=== PATIENT | female | born 1980 | race Caucasian/White ===

== ENCOUNTER → 2016-07-26 | Day surgery (SDC) | payer BC ==
[2016-07-25 12:37] VITALS: BMI 31.0
--- NOTE | 2016-07-25 13:02 | PAT Medication Instructions ---
Service Date Jul 25, 2016. Current Home Medication List Chlorhexidine Gluconate (Antiseptic Skin Cleanser), 1 DOSE TOP PRN PRN for BOILS Multivit/Min/Iron/Fol Ac/Pren ( Vitamin), 1 TAB PO DAILY [topical antibiotic], 1 DOSE TOP prn PRN for BOILS Medication Instructions For Your Scheduled Surgery - Hold the following medications the morning of surgery: Multivit/Min/Iron/Fol Ac/Pren ( Vitamin), 1 TAB PO DAILY Chlorhexidine Gluconate (Antiseptic Skin Cleanser), 1 DOSE TOP PRN PRN for BOILS [topical antibiotic], 1 DOSE TOP prn PRN for BOILS Nothing to eat or drink after midnight If you have any questions please call us at [phone] (Briana Zuluaga PA-C ) or [phone] or [phone]
[2016-07-25 13:15] LABS: BASO % 0.2 %; BASO ABS # 0.02 K/uL (0-0.2); COMPLETE YES; EOS % 1.5 %; HEMATOCRIT 39.3 % (37-47); IG% 0.2 %; LYMPH % 30.3 %; LYMPH ABS # 2.64 K/uL (1.2-3.4); MEAN CORPUSCULAR HEMOGLOBIN 33.5 pg (25-34); MEAN CORPUSCULAR HGB CONC 35.6 g/dl (32-36); MEAN PLATELET VOLUME 8.8 fL (7.4-10.4); MONO % 7.8 %; PLATELET COUNT 280 K/uL (130-400); RED BLOOD COUNT 4.18 M/uL (4.2-5.4); WHITE BLOOD COUNT 8.71 K/uL (4.8-10.8)
[~2016-07-26] VITALS: Ht 167.6 cm; Wt 86.9 kg
[~2016-07-26] MED LIST: ANTIBIOTIC TOP; ATROPINE SULFATE 0.1 MG/ML 5ML SYR IV PRN; CHLO4SOL TOP; CLINDAMYCIN 600 MG/54 ML D5W IV SCH; DEXAMETHASONE SOD INJ 4 MG/ML VIAL ONE; EpHEDrine SULFATE INJ 50 MG/ML AMP IV PRN; FENTANYL CITRATE INJ 50 MCG/1 ML 2 ML VIAL ONE; FLUMAZENIL 0.1 MG/1 ML 10 ML VIAL IV PRN; GENTAMICIN INJ 130 MG in DEXTROSE 5% 100ML 100 ML IV SCH; IBUP-1450 PO; IBUPROFEN 600 MG TAB PO PRN; KETOROLAC TROMETHAMINE 30 MG/ML VIAL IV. PRN; KETOROLAC TROMETHAMINE 30 MG/ML VIAL ONE; LACTATED RINGER'S 1000ML 1,000 ML IV SCH; LIDOCAINE HCL 2% 2 ML VIAL (20MG/ML) ONE; METHYLERGONOVINE MALEATE 0.2 MG/ML AMP ONE; METOCLOPRAMIDE HCL INJ 5 MG/ML 2 ML VIAL IV PRN; MIDAZOLAM HCL 1 MG/ML 2ML VIAL ONE; MTR600X PO; MoRPHine SULFATE 2 MG/ML CARP IV PRN; MoRPHine SULFATE 4 MG/ML 1 ML CARP\\VIAL IV PRN; NALOXONE HCL 0.4 MG/1 ML VIAL/CARP IV PRN; ONDANSETRON INJ 2 MG/ML 2 ML VIAL IV PRN; ONDANSETRON INJ 2 MG/ML 2 ML VIAL ONE; OXYC-57 PO; OXYCODONE/ACETAMINOPHEN 5-325 TAB PO PRN; PRENTAB26 PO; PROMETHAZINE HCL INJ 12.5 MG in SODIUM CHLORIDE 0.9% 50ML 50 ML IV PRN; PROPOFOL IV EMULSION 10 MG/ML 20 ML VIAL IV ONE; ROCURONIUM BROMIDE 10 MG/ML 5 ML VIAL ONE; SODIUM CHLORIDE 0.9% 1000ML 1,000 ML IV SCH; SUCCINYLCHOLINE CHLORIDE 20 MG/ML 10 ML VIAL IV ONE
[2016-07-26 06:55] VITALS: BP 106/61; PULSE 94; TEMP 37.3; O2SAT 96; Ht 167.6 cm; Wt 86.9 kg
[2016-07-26 06:59] LABS: BASO % 0.2 %; BASO ABS # 0.02 K/uL (0-0.2); COMPLETE YES; EOS % 1.9 %; HEMATOCRIT 38.8 % (37-47); IG% 0.1 %; LYMPH % 35.4 %; LYMPH ABS # 3.22 K/uL (1.2-3.4); MEAN CELL VOLUME 94.9 fL (80-100); MEAN CORPUSCULAR HEMOGLOBIN 33.5 pg (25-34); MEAN CORPUSCULAR HGB CONC 35.3 g/dl (32-36); MEAN PLATELET VOLUME 9.2 fL (7.4-10.4); MONO % 7.5 %; NEUT % 54.9 %; PLATELET COUNT 277 K/uL (130-400); RED BLOOD COUNT 4.09 M/uL (4.2-5.4); WHITE BLOOD COUNT 9.09 K/uL (4.8-10.8)
--- NOTE | 2016-07-26 07:41 | History & Physical Bridge Note ---
H&P Re-Evaluation Bridge Note: I have examined the patient, reviewed the History & Physical and in the interval since the performance of the History & Physical I have noted the following changes of clinical significance: No changes noted ECG: normal on 07/25/16
--- NOTE | 2016-07-26 09:14 | [facility] Post Operative Brief Note ---
Immediate Operative Summary Operative Date Jul 26, 2016. Pre-Operative Diagnosis Missed Post-Operative Diagnosis Same as preoperative Procedure(s) Performed Exam Under Anesthesia, Suction, Dilation and Currettage Surgeon Dr. Stubbs Anode Worker Surgeon(s) None per surgeon Estimated Blood Loss 50ml Findings RV 8 week size uterus, [employer] adnexa Specimens A.) Products of conception and endometrial currettings Anesthesia LMA Complication(s) None Disposition Recovery Room / PACU
[2016-07-26] MEDS: FENTANYL CITRATE INJ 50 MCG/1 ML 2 ML VIAL IV PRN ×4 (09:18→09:35)
--- NOTE | 2016-07-26 09:22 | Discharge Instructions-SurgCtr ---
Discharge Instructions Visit Reason for Visit: Missed Discharge Discharge Diagnosis / Problem: Suction, D&C Discharge Goals Goal(s): Decrease discomfort, Improve function Activity Recommendations Activity Limitations: as noted below Lifting Limitations: gradually increase as tolerated Exercise/Sports Limitations: until after follow-up appointment May Resume Sexual Activity: after follow-up appointment Shower/Bathe: no limitations Driving or Machine Use: resume 3 days after discharge ACTIVITY RECOMMENDATIONS: * Avoid tampons, douching, hot tubs, pools, and intercourse until bleeding has stopped. * May shower as usual. * No strenuous activity for 24-48 hours. After 24-48 hours, you may do anything you feel like doing (driving and sports are okay). SPECIAL CARE INSTRUCTIONS: Special Diet: * Mild nausea may occur in the immediate post-operative period. * Take clear liquids such as tea, cola or bouillon until all nausea has subsided; you may then resume your normal diet. Special Care: * Light bleeding and vaginal spotting can last from a few days to 3-4 weeks. Call your doctor if bleeding becomes heavier than the heaviest part of your period. * Check your temperature twice a day for one week. If it goes above 100.4 degrees Fahrenheit (38.0 Celsius), notify your doctor. * Call your doctor's office for an appointment for 4-6 weeks after your surgery. FOLLOW-UP VISIT: Call your doctor's office for an appointment for 4-6 weeks after your surgery. Anesthesia . Post Anesthesia Instructions: If you have had General Anesthesia or IV Sedation: * Do not drive today. * Resume driving when surgeon permits. * Do not make important decisions or sign legal documents today. * Call surgeon for: 1. Temperature elevations greater than 101 degrees F. 2. Uncontrollable pain. 3. Excessive bleeding. 4. Persistent nausea and vomiting. 5. Medication intolerance (nausea, vomiting or rash). * For nausea and vomiting use only clear liquids such as: tea, soda, bouillon until nausea subsides, then gradually increase diet as tolerated. * If you have any concerns or questions, call your surgeon's office. If physician is unavailable and it is an emergency, call 911 or go to the nearest emergency room. . Procedures Procedures Performed: Exam Under Anesthesia, Suction, Dilation and Currettage Pending Studies Studies pending at discharge: no Medical Emergencies . Who to Call and When: Medical Emergencies: If at any time you feel your situation is an emergency, please call 911 immediately. . Non-Emergent Contact Non-Emergency issues call your: Surgeon Call Non-Emergent contact if: temperature is above 100.5, your pain is not controlled, your pain is worsening . . "Provider Documentation" section prepared by Breanne Stubbs.
[2016-07-26 09:55] VITALS: BP 111/63; PULSE 88; TEMP 36.9; O2SAT 95
--- NOTE | 2016-07-26 10:06 | Anesthesiology Progress Note ---
Anesthesia Post Op Note Date & Time Jul 26, 2016 at 10:05 Vital Signs Pain Intensity: 2 Vital Signs Past 12 Hours Date Time Temp Pulse Resp B/P Pulse Ox O2 Delivery O2 Flow Rate FiO2 07/26/16 09:50 36.5 88 15 115/74 95 Room Air 07/26/16 09:40 86 18 116/69 96 Room Air 07/26/16 09:30 80 20 126/72 98 Mask 10 07/26/16 09:20 94 12 118/81 99 Mask 10 07/26/16 09:14 36.6 101 17 124/84 99 Mask 10 07/26/16 06:55 37.3 94 18 106/61 96 Room Air Notes Mental Status: alert / awake / arousable, participated in evaluation Pt Amnestic to Procedure: Yes Nausea / Vomiting: adequately controlled Pain: adequately controlled Airway Patency, RR, SpO2: stable & adequate BP & HR: stable & adequate Hydration State: stable & adequate Anesthetic Complications: no major complications apparent
--- NOTE | 2016-07-26 10:09 | OPERATIVE REPORT ---
DATE OF OPERATION: 07/26/2016 PREOPERATIVE DIAGNOSIS: The patient is a 36-year-old G1, P0 at 9 weeks of gestation by her last period and missed with 6 weeks size gestational sac, no embryo for over 3 weeks per repeat pelvic ultrasounds. Desires surgical termination of . POSTOPERATIVE DIAGNOSIS: Same. PROCEDURE: Examination under anesthesia, suction dilatation and curettage. SURGEON: Dr. Guerin. CLAY THROWER: OR nurse. ESTIMATED BLOOD LOSS: 50ml. SPECIMENS: Products of conception and endometrial curettings. ANESTHESIA: LMA Dr. Espino. COMPLICATIONS: None. FINDINGS: Examination under anesthesia revealed retroverted 8 weeks' size uterus and nonpalpable adnexa. Closed cervix with no signs of bleeding. OPERATION AND FINDINGS: PROCEDURE: The patient was taken to the operating room where anesthesia was given without difficulty. She was placed in dorsal lithotomy position and prepared and draped in usual sterile fashion. The bladder was drained with straight catheter, 150 mL of clear urine was obtained. Examination under anesthesia revealed retroverted 8 weeks' size uterus, nonpalpable adnexa and closed cervix. Gloves were changed. A weighted speculum was placed in the patient's vagina and anterior vaginal wall was retracted with Coburn valve and then cervix was visualized, grasped with single tooth tenaculum. The uterus was sounded to be 10 cm Cervical os was dilated with Gilbert dilators until #27. Then 8 mm curved flexible plastic suction tip was used. It was introduced from cervix and suction device was activated. With suction tip twisting in a clockwise direction moderate amount of products of conceptions were obtained.. Suction was repeated x3 and at the end only minimal amount of blood was coming from the suction tip Then the suction was ended. With a small sharp curette uterine cavity was curetted until uterine cry sound was felt in its entirety and those tissues were sent to pathology. Then suction tip was introduced again and suctioned small amount of blood. At the end of the procedure cervix was closed and no bleeding. Single tooth tenaculum was removed from the patient's cervix and it was hemostatic. Examination under anesthesia was repeated and found that smaller size firm uterus. The patient was given terbutaline 0.2 mg for prophylaxis of bleeding. The patient tolerated the procedure well. Sponge, lap, needle and instrument count was correct x3. She was given 130 mg of gentamicin and 600 mg of clindamycin before surgery. She was cleaned, dried and taken out from lithotomy position . She was taken o recovery room in stable condition. No complication happened and I was present during whole procedure. I attest to the content of the Intraoperative Record and any orders documented therein. Any exceptions are noted below. SYLVIAD
[2016-07-26 10:25] VITALS: BP 105/61; PULSE 88; O2SAT 95
[2016-07-26 10:55] VITALS: BP 115/65; PULSE 95; TEMP 36.9; O2SAT 95
== END | disposition home or self-care (01) ==
LOC: C.ACU 06:22
PROVIDERS: ATTEND Obstetrics & Gynecology
DX: O02.1 Missed abortion (principal); G43.109 Migraine with aura, not intractable, without status migrainosus; L73.2 Hidradenitis suppurativa; F17.210 Nicotine dependence, cigarettes, uncomplicated

== ENCOUNTER 2016-08-30 11:51 | Emergency (ER) | payer BC, OTHER ==
[~2016-08-30] VITALS: Ht 167.6 cm; Wt 88.5 kg
[~2016-08-30 11:51] MED LIST changes: -ATROPINE SULFATE 0.1 MG/ML 5ML SYR IV PRN; -CLINDAMYCIN 600 MG/54 ML D5W IV SCH; -DEXAMETHASONE SOD INJ 4 MG/ML VIAL ONE; -EpHEDrine SULFATE INJ 50 MG/ML AMP IV PRN; -FENTANYL CITRATE INJ 50 MCG/1 ML 2 ML VIAL ONE; -FLUMAZENIL 0.1 MG/1 ML 10 ML VIAL IV PRN; -GENTAMICIN INJ 130 MG in DEXTROSE 5% 100ML 100 ML IV SCH; -IBUP-1450 PO; -IBUPROFEN 600 MG TAB PO PRN; -KETOROLAC TROMETHAMINE 30 MG/ML VIAL IV. PRN; -KETOROLAC TROMETHAMINE 30 MG/ML VIAL ONE; -LACTATED RINGER'S 1000ML 1,000 ML IV SCH; -LIDOCAINE HCL 2% 2 ML VIAL (20MG/ML) ONE; -METHYLERGONOVINE MALEATE 0.2 MG/ML AMP ONE; -METOCLOPRAMIDE HCL INJ 5 MG/ML 2 ML VIAL IV PRN; -MIDAZOLAM HCL 1 MG/ML 2ML VIAL ONE; -MoRPHine SULFATE 2 MG/ML CARP IV PRN; -MoRPHine SULFATE 4 MG/ML 1 ML CARP\\VIAL IV PRN; -NALOXONE HCL 0.4 MG/1 ML VIAL/CARP IV PRN; -ONDANSETRON INJ 2 MG/ML 2 ML VIAL IV PRN; -ONDANSETRON INJ 2 MG/ML 2 ML VIAL ONE; -OXYCODONE/ACETAMINOPHEN 5-325 TAB PO PRN; -PROMETHAZINE HCL INJ 12.5 MG in SODIUM CHLORIDE 0.9% 50ML 50 ML IV PRN; -PROPOFOL IV EMULSION 10 MG/ML 20 ML VIAL IV ONE; -ROCURONIUM BROMIDE 10 MG/ML 5 ML VIAL ONE; -SODIUM CHLORIDE 0.9% 1000ML 1,000 ML IV SCH; -SUCCINYLCHOLINE CHLORIDE 20 MG/ML 10 ML VIAL IV ONE
[2016-08-30 11:56] VITALS: TEMP 36.9; Ht 167.6 cm; Wt 88.5 kg
[2016-08-30] MEDS ORDERED: IBUP-1450 PO (12:09)
[2016-08-30] MEDS ORDERED: HYDROmorphone INJ 1 MG/ML SYR IV STA ×2 (12:53→17:07)
[2016-08-30] MEDS ORDERED: SODIUM CHLORIDE 0.9% 1000ML 1,000 ML IV STA (12:53)
[2016-08-30] MEDS ORDERED: KETOROLAC TROMETHAMINE 30 MG/ML VIAL IV STA (12:53)
[2016-08-30] MEDS ORDERED: ACETAMINOPHEN 500 MG TAB PO STA (12:53)
[2016-08-30] MEDS ORDERED: OPTIRAY 320 IV PRN (13:00)
[2016-08-30 13:26] LABS: URINE APPEARANCE CLEAR (CLEAR); URINE BILIRUBIN NEG (NEG); URINE COLOR YELLOW; URINE NITRITE NEG (NEG); URINE SPECIFIC GRAVITY 1.023 (1.000-1.030); UROBILINOGEN NEG (NEG); ZZUR CULT IF INDIC CLEAN CATCH NO
[2016-08-30 13:28] LABS: BASO % 0.2 %; BASO ABS # 0.02 K/uL (0-0.2); COMPLETE YES; EOS % 1.6 %; HEMATOCRIT 38.8 % (37-47); IG% 0.2 %; LYMPH % 22.2 %; LYMPH ABS # 2.36 K/uL (1.2-3.4); MANUAL MICROSCOPIC REQUIRED? NO; MEAN CELL VOLUME 97.2 fL (80-100); MEAN CORPUSCULAR HEMOGLOBIN 33.6 pg (25-34); MEAN CORPUSCULAR HGB CONC 34.5 g/dl (32-36); MEAN PLATELET VOLUME 9.5 fL (7.4-10.4); MONO % 7.5 %; NEUT % 68.3 %; PLATELET COUNT 278 K/uL (130-400); RED BLOOD COUNT 3.99 M/uL (4.2-5.4); REVIEW REQ? NO; WHITE BLOOD COUNT 10.62 K/uL (4.8-10.8)
[2016-08-30 13:37] LABS: PROTHROMBIN TIME (PATIENT) 10.9 SECONDS (9.0-12.0)
[2016-08-30 13:58] LABS: ALT/SGPT 19 U/L (12-78); AST/SGOT 8 U/L (15-37); BLOOD UREA NITROGEN 10 mg/dl (7-18); BUN/CREATININE RATIO 14.6 (10-20); CALCIUM 9.2 mg/dl (8.5-10.1); CARBON DIOXIDE 25 mmol/L (21-32); CHLORIDE 108 mmol/L (98-107); CREATININE 0.68 mg/dl (0.60-1.20); GLUCOSE 86 mg/dl (70-99); POTASSIUM 4.1 mmol/L (3.5-5.1); SODIUM 142 mmol/L (136-145)
[2016-08-30 14:01] LABS: ALKALINE PHOSPHATASE 79 U/L (45-117)
--- NOTE | 2016-08-30 16:10 | EMERGENCY ROOM VISIT NOTE ---
History Report prepared by Rosa: Jeb Stone Under the Supervision of: Dr. Tova Gray M.D. First contact with patient: 12:50 Chief Complaint: ABDOMINAL PAIN Stated Complaint: SEVERE ABD. PAIN, SHOOTING INTESTINAL PAIN Nursing Triage Summary: Lower abd pain today, started with cramps yesterday with an episode of diarrhea. History of Present Illness The patient is a 36 year old female who presents to the Emergency Room with complaints of persistent abdominal pain beginning yesterday. She reports waking with abdominal cramping yesterday morning, and also had diarrhea in the morning. She notes the cramping continued throughout the day into the evening, and describes it as menstrual cramping that felt sharp, pressure, shooting, and sharp. The patient admits that passing gas somewhat relieves her pain. She notes her pain is worsened with walking and sitting up straight. She denies having any nausea or fever. The patient reports having a D&C on July 26, [address] Guerin at [facility] on August 18, 2016 and all was noted to be clear. Source of History: patient Onset: yesterday morning Position: abdomen Quality: pressure, sharp, cramping, other (shooting) Timing: other (persistent) Modifying Factors (Worsening): other (walking and sitting up straight) Modifying Factors (Relieving): other (passing gas) Associated Symptoms: + diarrhea, No nausea Review of Systems See HPI for pertinent positives & negatives. A total of 10 systems reviewed and were otherwise negative. Past Medical & Surgical Surgical Problems: (1) History of D&C Family History No pertinent family history stated. Social History Smoking Status: Light Tobacco Smoker Current/Historical Medications Scheduled Multivit/Min/Iron/Fol Ac/Pren ( Vitamin), 1 TAB PO DAILY Scheduled PRN Chlorhexidine Gluconate (Antiseptic Skin Cleanser), 1 DOSE TOP PRN PRN for BOILS Ibuprofen (Motrin), 600 MG PO Q6H PRN for Pain Oxycodone/Acetaminophen 5MG/325MG (Percocet 5MG/325MG), 1-2 TABLETS PO Q4H PRN for Pain [topical antibiotic], 1 DOSE TOP prn PRN for BOILS Allergies Coded Allergies: Penicillins (Verified Allergy, Intermediate, rash, 08/30/16) Physical Exam Vital Signs Date Time Temp Pulse Resp B/P Pulse Ox O2 Delivery O2 Flow Rate FiO2 08/30/16 16:00 98 20 122/72 100 Room Air 08/30/16 14:42 90 16 114/70 99 Room Air 08/30/16 13:09 90 16 125/72 99 Room Air 08/30/16 11:56 36.9 92 16 124/76 99 Physical Exam CONSTITUTIONAL: Moderate painful distress. HEENT: No icterus, moist mucous membranes NECK: No meningismus, trachea is midline. CARDIOVASCULAR: Regular rate, normal perfusion RESPIRATORY: Unlabored breathing. Clear to auscultation. GASTROINTESTINAL: Mild lower abdominal tenderness. GENITOURINARY: No flank tenderness MUSCULOSKELETAL: Full range of motion NEUROLOGIC: No acute gross focal deficits. PSYCHIATRIC: Normal affect SKIN: Normal for ethnicity. Medical Decision & Procedures ER Provider Diagnostic Interpretation: CT results as stated below per my review and radiologist interpretation. ABDOMEN AND PELVIS CT WITH IV AND ORAL CONTRAST FINDINGS: Minimal dependent bibasilar atelectatic change. There is a 2 cm left hepatic lobe cyst. There is otherwise uniform. Gallbladder is negative for distention. Kidneys negative for hydronephrosis. Abdominal bowel pattern is nonobstructive. The appendix is normal. There are no obstructive changes. There is a small amount of free fluid surrounding the left and to a lesser extent right ovary and pelvic cul-de-sac. Possibility of a partial ovarian structures considered. IMPRESSION: 1. Small amount of free fluid within the pelvic cul-de-sac possibly indicative of a partial ovarian cyst rupture. 2. Examination of the abdomen and pelvis is otherwise negative. Electronically signed by: Demetrio Leger M.D. 08/30/2016 4:28 PM Dictated Date/Time: 08/30/2016 4:25 PM Laboratory Results 08/30/16 12:45 Red Blood Count 3.99, Mean Corpuscular Volume 97.2, Mean Corpuscular Hemoglobin 33.6, Mean Corpuscular Hemoglobin Concent 34.5, Mean Platelet Volume 9.5, Neutrophils (%) (Auto) 68.3, Lymphocytes (%) (Auto) 22.2, Monocytes (%) (Auto) 7.5, Eosinophils (%) (Auto) 1.6, Basophils (%) (Auto) 0.2, Neutrophils # (Auto) 7.25, Lymphocytes # (Auto) 2.36, Monocytes # (Auto) 0.80, Eosinophils # (Auto) 0.17, Basophils # (Auto) 0.02 08/30/16 12:45 Test 08/30/16 12:45 08/30/16 13:40 White Blood Count 10.62 K/uL (4.8-10.8) Red Blood Count 3.99 M/uL (4.2-5.4) Hemoglobin 13.4 g/dL (12.0-16.0) Hematocrit 38.8 % (37-47) Mean Corpuscular Volume 97.2 fL (80-100) Mean Corpuscular Hemoglobin 33.6 pg (25-34) Mean Corpuscular Hemoglobin Concent 34.5 g/dl (32-36) Platelet Count 278 K/uL (130-400) Mean Platelet Volume 9.5 fL (7.4-10.4) Neutrophils (%) (Auto) 68.3 % Lymphocytes (%) (Auto) 22.2 % Monocytes (%) (Auto) 7.5 % Eosinophils (%) (Auto) 1.6 % Basophils (%) (Auto) 0.2 % Neutrophils # (Auto) 7.25 K/uL (1.4-6.5) Lymphocytes # (Auto) 2.36 K/uL (1.2-3.4) Monocytes # (Auto) 0.80 K/uL (0.11-0.59) Eosinophils # (Auto) 0.17 K/uL (0-0.5) Basophils # (Auto) 0.02 K/uL (0-0.2) RDW Standard Deviation 43.9 fL (36.4-46.3) RDW Coefficient of Variation 12.4 % (11.5-14.5) Immature Granulocyte % (Auto) 0.2 % Immature Granulocyte # (Auto) 0.02 K/uL (0.00-0.02) Prothrombin Time 10.9 SECONDS (9.0-12.0) Prothromb Time International Ratio 1.0 (0.9-1.1) Activated Partial Thromboplast Time 25.8 SECONDS (21.0-31.0) Partial Thromboplastin Ratio 1.0 Urine Color YELLOW Urine Appearance CLEAR (CLEAR) Urine pH 7.0 (4.5-7.5) Urine Specific [facility] 1.023 (1.000-1.030) Urine Protein NEG (NEG) Urine Glucose (UA) NEG (NEG) Urine Ketones NEG (NEG) Urine Occult Blood NEG (NEG) Urine Nitrite NEG (NEG) Urine Bilirubin NEG (NEG) Urine Urobilinogen NEG (NEG) Urine Leukocyte Esterase NEG (NEG) Anion Gap 9.0 mmol/L (3-11) Est Creatinine Clear Calc Drug Dose 128.1 ml/min Estimated GFR () 130.4 Estimated GFR (Non- 112.5 BUN/Creatinine Ratio 14.6 (10-20) Calcium Level 9.2 mg/dl (8.5-10.1) Total Bilirubin 0.9 mg/dl (0.2-1) Direct Bilirubin < 0.1 mg/dl (0-0.2) Aspartate Amino Transf (AST/SGOT) 8 U/L (15-37) Alanine Aminotransferase (ALT/SGPT) 19 U/L (12-78) Alkaline Phosphatase 79 U/L (45-117) Total Protein 6.8 gm/dl (6.4-8.2) Albumin 3.6 gm/dl (3.4-5.0) Lipase 126 U/L (73-393) Procalcitonin < 0.05 ng/mL (0-0.5) Human Chorionic Gonadotropin, Quant 2 mIU/mL Labs reviewed by ED physician. Medications Administered Medications (Trade) Dose Ordered Sig/Oli Route Start Time Stop Time Status Last Admin Dose Admin Acetaminophen 1000 mg 1,000 mg NOW STAT PO 08/30/16 12:53 08/30/16 12:57 DC 08/30/16 13:09 1,000 MG Sodium Chloride (Nss 1000ml) 1,000 ml @ 0 mls/hr Q0M STAT IV 08/30/16 12:53 08/30/16 12:57 DC 08/30/16 12:53 0 MLS/HR Ketorolac Tromethamine (Toradol Inj) 30 mg NOW STAT IV 08/30/16 12:53 08/30/16 12:57 DC 08/30/16 13:09 30 MG Hydromorphone HCl (Dilaudid Inj) 1 mg PRN STAT IV 08/30/16 12:53 08/30/16 12:57 DC 08/30/16 13:08 1 MG ED Course 1251: Past medical records reviewed. The patient was evaluated in room B10. A complete history and physical examination was performed. 1253: Ordered Dilaudid Inj 1 mg IV, Toradol Inj 30 mg IV, NSS 1,000 ml @ 0 mls/ hr Wide Open IV, and Acetaminophen 1,000 mg PO. 1707: Ordered Dilaudid Inj 1 mg IV. 1715: Upon reexamination the patient is doing well. I discussed results and treatment plan with the patient. She verbalizes agreement and understanding. The patient is ready for discharge. Medical Decision Differentials include complications of gynecologic procedure, diverticulitis, and ovarian cyst. 36 y/o s/p D&C (6-8weeks) Jul 26 (Apoorva Michelle) w/o complication presents to ED for lower abd pain, moderate to severe at times, for the last several days. CT notable for possible ruptured cyst. Rx Percocet. Patient understands to f/u with forensic artist and to return to ER for any worsening or worrisome symptoms. Impression Primary Impression: Abdominal pain Scribe Attestation The scribe's documentation has been prepared under my direction and personally reviewed by me in its entirety. I confirm that the note above accurately reflects all work, treatment, procedures, and medical decision making performed by me. Departure Information Dispostion Home / Self-Care Prescriptions Oxycodone/Acetaminophen 5MG/325MG (PERCOCET 5MG/325MG) Tab 1-2 TABLETS PO Q4H Y for Pain, #20 TAB Prov: Tova Gray MD 08/30/16 Referrals Felicia Woody D.O. (PCP) Patient Instructions Abdominal Pain - [facility], My [facility]
--- NOTE | 2016-08-30 16:30 | DIAGNOSTIC IMAGING REPORT ---
ABDOMEN AND PELVIS CT WITH IV AND ORAL CONTRAST CT DOSE: 933.41 mGycm HISTORY: Pelvic pain lower abdominal pain TECHNIQUE: Multiaxial CT images of the abdomen and pelvis were performed following the use of intravenous and oral contrast. COMPARISON STUDY: None. FINDINGS: Minimal dependent bibasilar atelectatic change. There is a 2 cm left hepatic lobe cyst. There is otherwise uniform. Gallbladder is negative for distention. Kidneys negative for hydronephrosis. Abdominal bowel pattern is nonobstructive. The appendix is normal. There are no obstructive changes. There is a small amount of free fluid surrounding the left and to a lesser extent right ovary and pelvic cul-de-sac. Possibility of a partial ovarian structures considered. IMPRESSION: 1. Small amount of free fluid within the pelvic cul-de-sac possibly indicative of a partial ovarian cyst rupture. 2. Examination of the abdomen and pelvis is otherwise negative. Electronically signed by: Demetrio Leger M.D. 08/30/2016 4:28 PM Dictated Date/Time: 08/30/2016 4:25 PM
[2016-08-30] MEDS ORDERED: OXYC-57 PO (17:05)
[2016-08-30 17:46] VITALS: BP 113/86; PULSE 99; O2SAT 100
== END 2016-08-30 17:43 | disposition home or self-care (01) ==
LOC: C.EDB 11:57
DX: R10.9 Unspecified abdominal pain (principal); F17.200 Nicotine dependence, unspecified, uncomplicated